=== PATIENT | male | born 1950 | race Caucasian/White ===

== ENCOUNTER 2025-01-17 17:48 | Emergency (ER) | payer MEDICARE, MEDICAID ==
[~2025-01-17] VITALS: Ht 177.8 cm; Wt 95.0 kg
[2025-01-17 17:50] VITALS: O2SAT 90
[2025-01-17 18:19] VITALS: PULSE 117; RESP 25; O2SAT 95
[2025-01-17 18:40] VITALS: O2SAT 90
[2025-01-17] MEDS: NOREPINEPHRINE 8MG/250ML PMX 250 ML IV ONE (18:50)
[2025-01-17] MEDS: SODIUM CHLORIDE 0.9% (SEPSIS BOLUS) IV ONE ×2 (18:53→19:25)
[2025-01-17] MEDS ORDERED: VASOPRESSIN 20 UNIT in SODIUM CHLORIDE 0.9% 99 ML SCH (19:00)
[2025-01-17] MEDS ORDERED: NOREPINEPHRINE 8MG/250ML PMX 250 ML IV SCH (19:00)
[2025-01-17] MEDS ORDERED: EPINEPHRINE 5 MG in SODIUM CHLORIDE 0.9% 245 ML IV SCH (19:00)
[2025-01-17] MEDS: DOPAMINE 400MG/250ML PREMIX 250 ML IV SCH (19:09)
[2025-01-17 19:20] LABS: BASOPHILS % 0.2 % (0.0-2.0); DIFFERENTIAL COMMENT 0; EOSINOPHILS % 0.2 % (0.0-5.0); LYMPHOCYTES % 23.4 % (20.0-50.0); MEAN CORPUSCULAR HEMOGLOBIN 31.3 pg (28.0-32.0); MEAN CORPUSCULAR HGB CONC 30.4 g/dL (31.0-37.0); MEAN PLATELET VOLUME 7.9 fl (7.4-10.4); MONOCYTES % 2.8 % (2.0-8.0); NEUTROPHILS % 73.4 % (40.0-76.0); PLATELET 100 x1000/uL (130-400); RED BLOOD CELL COUNT 1.79 mill/uL (4.7-6.1); RED CELL DISTRIBUTION WIDTH 14.5 % (11.6-14.6); WHITE BLOOD COUNT 4.7 x1000/uL (4.5-11.0)
[2025-01-17] MEDS: VASOPRESSIN 20 UNIT in SODIUM CHLORIDE 0.9% 99 ML IV PRN (19:24)
[2025-01-17 19:26] LABS: CHLORIDE 118 mEq/L (98-107); POTASSIUM 3.6 mEq/L (3.5-5.1); SODIUM 151 mEq/L (136-145)
[2025-01-17 19:27] LABS: CALCIUM 7.6 mg/dL (8.7-10.4); CARBON DIOXIDE 16 mEq/L (21-32)
[2025-01-17] MEDS: EPINEPHRINE 5 MG in SODIUM CHLORIDE 0.9% 245 ML IV PRN (19:29)
[2025-01-17] MEDS ORDERED: NOREPINEPHRINE 8MG/250ML PMX 250 ML IV PRN (19:30)
[2025-01-17] MEDS ORDERED: DOPAMINE 400MG/250ML PREMIX 250 ML IV PRN (19:30)
[2025-01-17 19:32] LABS: GLUCOSE 257 mg/dL (70-105); UREA NITROGEN BLOOD 15 mg/dL (9-23)
[2025-01-17 19:33] LABS: TROPONIN I HIGH SENSITIVITY 20 ng/L (3.0-53)
[2025-01-17 19:34] LABS: ETHANOL BLOOD < 10 mg/dL (<10)
[2025-01-17 19:35] LABS: D-DIMER 20.64 mg/L FEU (<0.50); INR 1.7; PROTHROMBIN TIME 18.3 sec (9.6-11.0)
[2025-01-17 19:37] LABS: LACTIC ACID 11.9 mmol/L (0.4-2.0)
[2025-01-17 19:44] LABS: HEMOGLOBIN. 5.6 g/dL (14.0-18.0)
[2025-01-17 19:45] LABS: HEMATOCRIT. 18.4 % (42.0-52.0)
[2025-01-17] MEDS ORDERED: PROPOFOL 10MG/ML 100ML 100 ML IV PRN (19:45)
[2025-01-17] MEDS ORDERED: ACETAMINOPHEN 650MG SUPP PR PRN (19:45)
[2025-01-17] MEDS ORDERED: TENECTEPLASE 50MG/VIAL (FOR MI OR PE) IV ONE (19:45)
[2025-01-17] MEDS ORDERED: PHENYLEPHRINE 50MG/250ML PMX 250 ML IV PRN (19:45)
[2025-01-17] MEDS ORDERED: FENTANYL CITRATE/PF 2,500 MCG in SODIUM CHLORIDE 0.9% 200 ML IV PRN (19:45)
[2025-01-17] MEDS ORDERED: ACETAMINOPHEN 650MG/20.3ML UDC NG PRN (19:45)
[2025-01-17 19:53] VITALS: PULSE 47; RESP 25
[2025-01-17] MEDS ORDERED: FENTANYL CITRATE/PF 1,000 MCG in DEXT 5% WATER 80 ML IV PRN (20:00)
[2025-01-17 20:06] VITALS: BP 52/17
[2025-01-17] MEDS: PHENYLEPHRINE 50MG/250ML PMX 250 ML IV PRN (20:06)
[2025-01-17] MEDS ORDERED: VASOPRESSIN 20 UNIT in SODIUM CHLORIDE 0.9% 99 ML IV SCH (20:30)
== END 2025-01-17 22:42 ==
LOC: ER 17:48
DX: I46.9 Cardiac arrest, cause unspecified (principal); I49.01 Ventricular fibrillation; J96.90 Respiratory failure, unspecified, unspecified whether with hypoxia or hypercapnia; G89.29 Other chronic pain; M54.9 Dorsalgia, unspecified; E78.00 Pure hypercholesterolemia, unspecified; I10 Essential (primary) hypertension; Z79.899 Other long term (current) drug therapy; Z46.82 Encounter for fitting and adjustment of non-vascular catheter
CPT/HCPCS: 80048; 80320; 82962; 83880; 83605; 85025; 85379; 85610; 86850; 86900; 86901; 86920; 87040; 84484; 36415; 71045; 92950; 94664; 93005; 94070; 96360; 96361; 99285; J3490 ×2; J7050; J7030; J1265; 36430; 94003; P9016; G0480